=== PATIENT | female | born 1995 | race African-American/Black ===

== ENCOUNTER 2021-11-12 04:41 | Emergency (ER) | payer OTHER ==
[~2021-11-12] VITALS: Ht 162.6 cm; Wt 77.7 kg
[2021-11-12 04:48] VITALS: BP 113/60
[2021-11-12] MEDS ORDERED: AMOX875T PO (05:22)
--- NOTE | 2021-11-12 05:22 | ED.ADGEN ---
Past Medical History Past Surgical History: No Surgical History Smoking Status: Never Smoker Alcohol Use: Occasionally General Adult EDM: Chief Complaint: EARACHE/EAR PAIN HPI: HPI: Patient is a 26 year old female coming in for right ear pain. Patient states she is recently being fighting a cold and had congestion. Several sleep because of her right ear pain. Denies any history of ear infections. Denies any history of foreign body in ear or using Q-tips. No fevers. Denies any drainage from ear Review of Systems: Review of Systems: All other systems within normal limits except for as noted in the HPI Allergies: Allergies: Allergies Coded Allergies Type Severity Reaction Last Updated Verified No Known Drug Allergies 11/12/21 No Physical Exam: PE: Constitutional: Well developed, well nourished, no acute distress, non-toxic appearance. [] HENT: Normocephalic, atraumatic, bilateral external ears normal, nose normal. Bilateral canals normal, left TM normal, right TM partially occluded by cerumen but a portion seen is erythematous and bulging. No mastoid tenderness bilaterally [] Eyes: PERRLA, conjunctiva normal, no discharge. [] Neck: No rigidity, supple, no stridor. [] Cardiovascular: Regular rate and rhythm, brisk cap refill [] Lungs & Thorax: Non labored symmetric respirations, no tachypnea or respiratory distress [] Abdomen: Soft, nondistended. Skin: Warm, dry, no erythema, no rash. [] Back: Unremarkable Extremities: No deformities, range of motion grossly intact, no lower extremity edema [] Neurologic: Alert and oriented X 3, no focal deficits noted. [] Psychologic: Affect normal, judgement normal, mood normal. [] Current Patient Data: Vital Signs: Vital Signs Date Time Temp Pulse Resp B/P (MAP) Pulse Ox O2 Delivery O2 Flow Rate FiO2 11/12/21 04:48 98.5 80 20 113/60 (77) 96 Room Air 98.5 EKG: EKG: [] Heart Score: C/O Chest Pain: No Risk Factors: Risk Factors: DM, Current or recent (<one month) smoker, HTN, HLP, family history of CAD, obesity. Risk Scores: Score 0 - 3: 2.5% MACE over next 6 weeks - Discharge Home Score 4 - 6: 20.3% MACE over next 6 weeks - Admit for Clinical Observation Score 7 - 10: 72.7% MACE over next 6 weeks - Early Invasive Strategies Radiology/Procedures: Radiology/Procedures: [] Course & Med Decision Making: Course & Med Decision Making Pertinent Labs and Imaging studies reviewed. (See chart for details) [] Dragon Disclaimer: Dragon Disclaimer: This electronic medical record was generated, in whole or in part, using a voice recognition dictation system. Departure Departure Impression: Primary Impression: Right otitis media Disposition: HOME / SELF CARE / HOMELESS Condition: STABLE Referrals: UNKNOWN PCP NAME (PCP) Patient Instructions: Otitis Media, Adult Scripts Amoxicillin (AMOXICILLIN) 875 Mg Tablet 1 TAB PO BID for antibiotic, #20 TAB Prov: POONAM CAN MD 11/12/21 POONAM CAN MD Nov 12, 2021 05:22
== END 2021-11-12 05:27 | disposition home or self-care (01) ==
LOC: ER 04:41
DX: H66.91 Otitis media, unspecified, right ear (principal)
CPT/HCPCS: 99283